=== PATIENT | female | born 1980 | race Hispanic/Latino ===

== ENCOUNTER 2022-05-14 01:03 | Observation (INO) | payer OTHER, MEDICAID ==
[~2022-05-14] VITALS: Ht 154.9 cm; Wt 87.5 kg
[2022-05-14 01:32] LABS: APPEARANCE,URINE CLEAR (CLEAR); BILIRUBIN,URINE NEGATIVE (NEGATIVE); COLOR,URINE COLORLESS (YELLOW); GLUCOSE, URINE (UA) NEGATIVE (NEGATIVE); KETONES,URINE NEGATIVE (NEGATIVE); LEUKOCYTE ESTERASE ,URINE NEGATIVE Leu/uL (NEGATIVE); NITRATE,URINE NEGATIVE (NEGATIVE); PH,URINE 5.5 (5.0-8.0); PROTEIN,URINE NEGATIVE (NEGATIVE); UROBILINOGEN,URINE 0.2 mg/dL (0.2-1.0)
[2022-05-14 01:42] LABS: OCCULT BLOOD,URINE NEGATIVE (NEGATIVE)
[2022-05-14 02:35] LABS: BASOPHILS % (AUTO) 0.8 % (0.0-5.0); EOSINOPHILS % (AUTO) 3.6 % (0.0-8.0); HEMATOCRIT 35.5 % (36-48); MEAN CORPUSCULAR HEMOGLOBIN 30.8 pg (27.0-33.0); MEAN CORPUSCULAR HGB CONC 34.6 g/dL (32.0-36.0); MONOCYTES % (AUTO) 5.9 % (3.0-13.0); NEUTROPHILS % (AUTO) 54.5 % (40.0-77.0); PLATELET COUNT (AUTO) 290 K/uL (130-400); RED BLOOD CELL COUNT(AUTO) 3.99 MIL/uL (4.00-5.50); RED CELL DISTRIBUTION WIDTH 13.7 % (11.0-15.5); WHITE BLOOD COUNT (AUTO) 14.8 K/uL (4.8-10.8)
[2022-05-14 02:54] LABS: CREATININE 0.8 mg/dL (0.5-1.5); POTASSIUM 3.4 mmol/L (3.5-5.1)
[2022-05-14 02:59] LABS: ALBUMIN 3.3 g/dL (3.5-5.0)
[2022-05-14] MEDS ORDERED: KCL 20 MEQ ERTAB PO PRN (04:00)
[2022-05-14] MEDS ORDERED: ASPIRIN 81MG CHEW TAB PO ONE (04:00)
[2022-05-14] MEDS ORDERED: HYDROCODONE/ACETAMINOPHEN 5/325 MG TAB PO PRN ×2 (04:00)
[2022-05-14] MEDS ORDERED: ACETAMINOPHEN 325 MG TAB PO PRN ×2 (04:00)
[2022-05-14] MEDS ORDERED: POTASSIUM CHLORIDE 20MEQ/100ML 100 ML IV PRN (04:00)
[2022-05-14] MEDS ORDERED: NITROGLYCERIN 1GM OINT 1 INCH/1GM TD SCH (04:00)
[2022-05-14] MEDS ORDERED: LIDOCAINE HCL-MPF 1% 2ML VIAL IV PRN (04:00)
[2022-05-14] MEDS ORDERED: ONDANSETRON 4MG INJ IV PRN (04:00)
[2022-05-14] MEDS: POTASSIUM CHLORIDE 10% ELIXIR 20 MEQ/15 ML UDCUP PO PRN ×2 (05:49→10:28)
[2022-05-14 05:55] LABS: AMPHET/METH SCREEN,URINE NEGATIVE (NEGATIVE); BARBITURATE SCREEN, URINE NEGATIVE (NEGATIVE); BENZODIAZEPINES SCREEN,URINE NEGATIVE (NEGATIVE); CANNABINOID SCREEN,URINE NEGATIVE (NEGATIVE); COCAINE SCREEN,URINE NEGATIVE (NEGATIVE); OPIATE SCREEN,URINE NEGATIVE (NEGATIVE); PHENCYCLIDINE SCREEN,URINE NEGATIVE (NEGATIVE)
[2022-05-14] MEDS: NITROGLYCERIN 1GM OINT 1 INCH/1GM TD SCH ×3 (06:27→22:41)
[2022-05-14] MEDS: FAMOTIDINE 20MG TAB PO SCH ×2 (08:46→20:52)
[2022-05-14] MEDS: ASPIRIN 81MG CHEW TAB PO SCH (08:46)
[2022-05-14] MEDS: ENOXAPARIN SODIUM 40 MG/0.4 ML SYRINGE SQ SCH (08:51)
[2022-05-14 12:56] LABS: INR 0.93 (0.85-1.15); PROTHROMBIN TIME 9.8 SEC (9.6-11.6)
[2022-05-14] MEDS ORDERED: MELO5CAP3 PO (15:20)
[2022-05-14] MEDS ORDERED: TRAMADOL /APAP 37.5MG/325MG TAB PO PRN (16:00)
[2022-05-15 00:51] LABS: POTASSIUM 3.7 mmol/L (3.5-5.1)
[2022-05-15 00:55] LABS: CREATININE 9.5 mg/dL (0.5-1.5)
[2022-05-15 01:17] LABS: CREATININE 0.7 mg/dL (0.5-1.5); POTASSIUM 3.8 mmol/L (3.5-5.1)
[2022-05-15 03:30] VITALS: BP 133/83
[2022-05-15] MEDS: NITROGLYCERIN 1GM OINT 1 INCH/1GM TD SCH ×2 (05:29→14:19)
[2022-05-15 07:18] LABS: BASOPHILS % (AUTO) 0.8 % (0.0-5.0); EOSINOPHILS % (AUTO) 2.8 % (0.0-8.0); HEMATOCRIT 34.9 % (36-48); MEAN CORPUSCULAR HEMOGLOBIN 30.5 pg (27.0-33.0); MEAN CORPUSCULAR HGB CONC 33.5 g/dL (32.0-36.0); MEAN CORPUSCULAR VOLUME 91.1 fL (79-99); NEUTROPHILS % (AUTO) 53.1 % (40.0-77.0); PLATELET COUNT (AUTO) 260 K/uL (130-400); RED BLOOD CELL COUNT(AUTO) 3.83 MIL/uL (4.00-5.50); RED CELL DISTRIBUTION WIDTH 13.5 % (11.0-15.5); WHITE BLOOD COUNT (AUTO) 11.7 K/uL (4.8-10.8)
[2022-05-15 07:30] VITALS: BP 106/55
[2022-05-15] MEDS ORDERED: REGADENOSON 0.4 MG/5 ML PF SYG IVP SCH (08:30)
[2022-05-15] MEDS ORDERED: BUPR-72 PO (10:50)
[2022-05-15 11:56] VITALS: BP 103/64
[2022-05-15] MEDS: ASPIRIN 81MG CHEW TAB PO SCH (12:19)
[2022-05-15] MEDS: FAMOTIDINE 20MG TAB PO SCH (12:19)
[2022-05-15] MEDS: ENOXAPARIN SODIUM 40 MG/0.4 ML SYRINGE SQ SCH (12:19)
== END 2022-05-15 14:40 | disposition home or self-care (01) ==
LOC: EDH 01:03 → INTOOBSV 03:50 → EDHIP 03:50 → 2DH 05-15 03:09
PROVIDERS: ADMIT Internal Medicine; ATTEND Internal Medicine
DX: R07.89 Other chest pain (principal); D72.829 Elevated white blood cell count, unspecified; E87.6 Hypokalemia; M79.7 Fibromyalgia; M19.90 Unspecified osteoarthritis, unspecified site; F17.210 Nicotine dependence, cigarettes, uncomplicated; E55.9 Vitamin D deficiency, unspecified; M17.0 Bilateral primary osteoarthritis of knee; E66.9 Obesity, unspecified; R77.8 Other specified abnormalities of plasma proteins; Z90.49 Acquired absence of other specified parts of digestive tract; Z79.899 Other long term (current) drug therapy; Z98.890 Other specified postprocedural states; Z51.5 Encounter for palliative care; Z56.0 Unemployment, unspecified; Z68.36 Body mass index [BMI] 36.0-36.9, adult
CPT/HCPCS: 99285; 71045; 96372 ×2; 84484 ×4; 80053; 80305; 85025 ×2; 85610; 87040 ×2; 81025; 36415 ×2; 93005 ×2; 81003; 78452; 83735 ×2; 84100; 80048 ×2; 93017; J1650 ×2; G0378; J2785; A9500 ×2; 96374